=== PATIENT | female | born 1960 | race Caucasian/White ===

== ENCOUNTER → 2018-08-31 14:51 | Outpatient (CLI) | payer OTHER, SELFPAY ==
[2018-09-05 13:39] LABS: HPV Reflexed? NOT INDICATED
== END ==
PROVIDERS: Visit Provider Obstetrics & Gynecology
DX: Z12.4 Encounter for screening for malignant neoplasm of cervix (principal)
CPT/HCPCS: 88175; G0145

== ENCOUNTER → 2018-10-26 12:21 | Outpatient (CLI) | payer MEDICAID, SELFPAY ==
--- NOTE | 2018-10-26 12:24 | BI_ITS ---
MAMMOGRAPHY - BILATERAL SCREENING 3-D CHANTELL SYNTHESIS REASON FOR EXAM: Female, 58 years old. Bilateral Screening 3-D tomosynthesis PERTINENT HISTORY: History of right stereotactic biopsy in 2005.. TECHNIQUE: 2-D mammograms and 3-D Chantell synthesis of the breast (s) were performed. CAD was performed. COMPARISON: January 20, 2013, August 05, 2011 FINDINGS: The breast composition is composed of scattered fibroglandular density. There is a stereotactic biopsy clip in the upper outer quadrant of the right breast unchanged. Scattered benign calcifications are seen. No dense spiculated masses or suspicious microcalcifications are identified. No architectural distortion is identified. There is no skin thickening or retraction. There has been no significant change since the prior study. BI/SCREENING MAMM (CAD), BILAT IMPRESSION: No mammographic signs of malignancy. Routine yearly mammograms recommended. ASSESSMENT CATEGORY: BIRADS Category 2: Benign. A letter regarding these results will be sent to the patient by the facility within 30 days. FOLLOW UP RECOMMENDATION: Yearly follow up mammogram recommended. (A) Approximately 10% of breast cancers are not detected by mammography. A normal mammogram should not delay biopsy of a clinically suspicious abnormality. Electronically Signed: Jules Chester MD at 10:30 EST , Service support ,
== END ==
PROVIDERS: Family Provider Family Medicine; PCP Family Medicine; Referring Provider Obstetrics & Gynecology; Visit Provider Obstetrics & Gynecology
DX: Z12.31 Encounter for screening mammogram for malignant neoplasm of breast (principal)
CPT/HCPCS: 77063; 77067

== ENCOUNTER 2018-11-23 07:22 | Inpatient (IN) | payer MEDICAID, SELFPAY ==
[2018-11-04 14:04] VITALS: BP 106/67; PULSE 74; RESP 16; TEMP 36.4; O2SAT 100; BMI 22.9
[2018-11-04 15:05] LABS: Absolute Lymphocyte Count 1.23 X10^3/ul (0.83-4.51); Absolute Neutrophil Count 3.9 X10^3/uL (2.0-7.7); Basophil# 0.03 X10^3/uL; Basophil% 0.5 % (0-1); Eosinophil# 0.07 X10^3/uL; Eosinophils% 1.3 % (0-5); Hematocrit 40.5 % (37-47); Hemoglobin 13.5 g/dl (12.0-15.0); Lymphocyte # 1.23 X10^3/ul (4.0); Lymphocyte % 22.2 % (19-41); Mean Corp Hgb Conc 33.3 g/gl (32-36); Mean Corpuscular Hgb 29.5 pg (27.0-32.0); Mean Corpuscular Volume 88.6 fL (81-99); Mean Platelet Vol. 9.9 fl (6.2-12.0); Monocyte# 0.28 X10^3/uL; Monocyte% 5.1 % (0-10); Neutrophil # 3.91 X10^3/uL (2.7-7.7); Neutrophil % 70.7 % (47-70); Platelet Count 201 K/mm3 (150-450); RBC Distribution Width CV 13.4 % (11.6-14.6); RBC Distribution Width SD 43.8 fl (35.1-43.9); Red Blood Count 4.57 M/mm3 (4.2-5.4); White Blood Count 5.5 K/mm3 (4.4-11.0)
[2018-11-04 15:32] LABS: Anion Gap 8 (5-15); BUN 16 mg/dL (7-18); BUN/Creat Ratio 21.9 RATIO (10-20); Chloride 106 mmol/L (98-107); Creatinine, Serum 0.73 mg/dL (0.55-1.02); EST Glomerular Filtration Rate 87 mL/min (>60); Est Glom Filt Rate - Afr Amer 106 mL/min (>60); Estimated Creatinine Clearance 73.42 ml/min; Glucose 105 mg/dL (74-106); Potassium 3.7 mmol/L (3.5-5.1); Sodium Level 142 mmol/L (136-145)
[2018-11-04 15:34] LABS: POSITIVE COUNT NO; POSITIVE DIFFERENTIAL NO; POSITIVE MORPHOLOGY NO
--- NOTE | 2018-11-05 09:30 | PCM.HP.BLA ---
History and Physical DATE OF SURGERY: 11/23/2018 SCHEDULED PROCEDURE: right total hip arthroplasty HISTORY OF PRESENT ILLNESS: This is a 58-year-old female who is been having ongoing pain in her right hip for over 15 years. She states it is progressively become worse. Patient states the pain can reach as high as a 6/10 with activity. Pain is increased with going up and down stairs, sitting for extended periods of time. Patient does have start up pain. Pain has been constant, aching, stabbing, and sore. She has difficult time with activities of daily living including getting dressed. She has tripped and stumbled secondary to her hip pain. Patient states the pain does wake her at night. Patient has tried oral medications consisting of ibuprofen with minimal relief. She has tried home exercises and walking with minimal relief. She denies previous surgeries on the right hip. Patient has had a previous MRI and that of the hip in the past. This did show osteoarthritis and labral tear. X-rays of the right hip do show progressive osteoarthritis with severe joint space narrowing. Patient currently denies chest pain, shortness of breath, fevers chills, recent infections. We have obtain surgical clearance from her primary care physician Dr. Rangel. After failing conservative measures and discussing treatment options with Dr. Jose Che, the patient would like to proceed with a right total hip arthroplasty. REVIEW OF SYSTEMS: ROS: Const: Denies change in appetite, fever,or weight change. CV: Denies chest pain, heart murmur and irregular heartbeat. Resp: Denies cough, pneumonia, SOB, tuberculosis and wheezing. GI: Denies constipation, diarrhea, difficulty swallowing, heartburn, nausea, bloody stools and vomiting. : Urinary: denies incontinence. Musculo: Reports limp and weakness, but denies leg swelling and trouble walking. Skin: Denies Raynaud's, history of shingles and tattoo. Neuro: Denies ambulatory dysfunction, dizziness, numbness/tingling and tremor. Psych: Denies anxiety, insomnia and stress. Spencer/Lymph: Denies anemia, bleeding/bruising tendency and past transfusion. Reviewed, no changes. PAST MEDICAL HISTORY: Advance Care Plan: No Advance Directives Effective Date: 10/06/2018 PMH: Medical Problems: Arthritis Accidents: None Surgical Hx: Tonsillectomy - (1960) Anesthesia Complications: None Assistive Devices: Glasses Reviewed, no changes. 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 Personal Habits: Cigarette Use: Never Smoked Cigarettes.Alcohol: Denies use.Drug Use: Denies Use.Enjoy Exercising: Exercises 1-3 X/Week. Reviewed, no changes. VITALS: Ht: 64.5 Wt: 136lb Wt k.690 BMI: 23.0 BP: 108/68 Pulse: 76 Resp: 10 T: 97.2 T: 36.2C ALLERGIES: No Known Drug Allergy MEDICATIONS: No Active Medications PRE-OP EXAM: General appearance:NORMAL Other: Eyes: Conjunctivae and lids: NORMAL Pupils: ERR Ears, Nose, Mouth, and Throat: NORMAL Other: Inspection of lips, teeth and gums: NORMAL Other: Neck: Examination of neck: no masses noted. Respiratory: Assessment of respiratory effort: NORMAL Other: Auscultation of lungs: clear to auscultation no wheezes, rhonchi or rales. Cardiovascular: Auscultation of heart: regular rate and rhythm, no murmurs, gallops or rubs. Exam of carotid arteries: NORMAL Other: Gastrointestinal: Exam of abdomen: soft, nontender, nondistended bowel sounds present. PHYSICAL EXAMINATION: Patient has tenderness to palpation over the lateral aspect of the greater trochanter. Range of motion right hip: Flexion 95, internal rotation 10, external rotation 10. Pain is reproduced with flexion, external/internal rotation. Sensation intact to light touch. Neurovascularly intact. IMAGING STUDIES: X-rays were obtained and [facility] which does reveal progressive osteoarthritis of the right hip with joint space narrowing, subchondral sclerosis, and osteophyte formation consistent with severe osteoarthritis. Patient had previous x-rays in 2016. There is subchondral sclerosis with progressive formation of subchondral cyst in the femoral head and acetabulum. IMPRESSION: 1. Severe right hip osteoarthritis PLAN: Dr. Jose Che did discuss and review with the patient all treatment options including surgical versus nonsurgical options. Patient does wish to proceed with the above-stated procedure. Potential risks, benefits, and complications of the procedure were discussed in detail including but not limited to , infection, nerve and blood vessel damage, persistent pain, numbness, tingling, paresthesias, blood clot, pulmonary embolism, and requirement for possible further surgery. The patient expressed full understanding and has no further questions for the doctor. Patient does agree to proceed with the above-stated procedure and has signed the surgery consent form. This dictation was created using voice recognition software. Phonetic and/or grammatical errors may exist.. ___ I have re-examined the patient. There are no clinical changes since date of exam. ___ See progress notes for changes. ___ Dictated on admission Date: Time: Signature:
[2018-11-21 11:53] LABS: Albumin, Serum 4.4 g/dL (3.2-5.0)
--- NOTE | 2018-11-21 14:04 | CASEMGMT ---
Call placed to patient to discuss discharge needs after upcoming surgery. Patient plans to return home and has assistance at home. Outpatient physical therapy is set up at [facility] and patient plans to utilize [facility] transportation. Patient has a walker, shower seat, grab bar beside toilet. Patient reports home is handicapped accessible. Bedroom and bathroom are on the 1st level of the home. There are no steps into home, patient has a ramp. Informed patient that RN-CM will likely follow up after surgery. Noemy Arenas LPN Clinical Support
[2018-11-23] VITALS (13 sets, daily range): BP systolic 92–113; BP diastolic 52–82; PULSE 64–94; RESP 14–16; TEMP 36.3–37.1; O2SAT 95–100; BMI 22.9; BMI 22.6
[2018-11-23] MEDS: oxyCODONE HCl Cr 10 MG Tablet PO (07:57)
[2018-11-23] MEDS: Acetaminophen 500 MG Tablet 1000 MG PO ×3 (07:57→21:50)
[2018-11-23] MEDS: Celecoxib 200 MG Capsule 400 MG PO (07:57)
--- NOTE | 2018-11-23 08:10 | RAD_ITS ---
STUDY: X-RAY - RIGHT HIP REASON FOR EXAM: Female, 58 years old. Right total hip TECHNIQUE: 2 views of the hip. Intraoperative fluoroscopy images COMPARISON: None. FINDINGS: Placement of right hip arthroplasty. No evidence of acute complications. 6.3 seconds of fluoroscopy time RAD/Hip 1 view with Pelvis IMPRESSION: As above Electronically Signed: Abram Negrete DO at 12:58 EST Tel , Service support ,
[2018-11-23] MEDS: Lactated Ringers 1,000 ML 999 ML IV ×2 (08:20→10:15)
[2018-11-23] MEDS: Cefazolin 2 GM in 0.9% Normal Saline 100 ML IV (08:28)
--- NOTE | 2018-11-23 09:55 | RAD_ITS ---
STUDY: X-RAY - RIGHT HIP REASON FOR EXAM: Female, 58 years old. Postop of right hip TECHNIQUE: 2 views of the hip. COMPARISON: 05/09/2014 FINDINGS: Patient is status post right hip arthroplasty. No evidence of acute hardware failure or loosening. Expected postoperative soft tissue changes. Hardware appears intact. Left hip is grossly within normal limits. RAD/Hip Min 2 Views (Portable) IMPRESSION: As above Electronically Signed: Abram Negrete DO at 12:57 EST Tel , Service support ,
--- NOTE | 2018-11-23 09:57 | PCM.OPRPT ---
Report of Operation Date of Procedure: 11/23/18 Pre-Operative Diagnosis: Right hip primary osteoarthritis Post-Operative Diagnosis: Right hip primary osteoarthritis Surgery/Procedure Performed:: Right direct anterior total hip replacement Description of Surgical Findings:: Stable hip with equal leg lengths plasterer stucco: Savanna Jack Type of Anesthesia:: Spinal Anesthesiologist: Dario Dove Special Medications: 2 g Ancef, 1 g TXA at incision, 1 g TXA closure, 10 mg Decadron, joint cocktail (5 mg Duramorph, 30 mL of 0.5% Ropivicaine, 1000 units of epinephrine, 30 mg of Toradol) Specimen's removed: Bony cuts Estimated Blood Loss (mL): 100 Fluids Replaced: 1000 ML crystalloid Description of Procedure: Components used: 1. Accolade 2 Sandro femoral stem size 5 127? 2. Tropic trident 2 acetabular shell size 54 mm 3. Tropic X3 polyethylene E 4. Tropic Biolox delta 36mm, -5mm femoral head Brief history operative indications: 58 yo F who failed conservative measures for their hip osteoarthritis. X-rays were consistent with osteoarthritis including joint space narrowing, osteophyte formation and subchondral cysts. Total hip replacement was discussed with the patient with risks and benefits including but not limited to blood loss, DVTs, PEs, neurovascular damage, dislocation, general risks of anesthesia including loss of life. Patient demonstrated an understanding medical clearance is obtained the patient was consented for surgery. Procedure: On the date of procedure the patient's R hip was marked in the preoperative area. Patient was then taken back to the operating room where anesthesia assumed control of the C-spine and airway and administered anesthetic. Patient was transferred to the operating table and placed in the supine position. The hips were placed at the break of the bed and a sacral bump was placed. The R lower extremity was then prepped out in a sterile fashion using chlorhexidine while the surgeon scrubbed. The PA was vital in the positioning of the patient. Upon reentering the room the R lower extremity was draped in the standard orthopedic fashion and the incision was marked. A timeout was called and everyone agreed upon the side, the site, the procedure be performed, antibody given, and patient's identity. At this time incision was made through skin, subcutaneous tissue, and fat down to fascia. The fascia was then incised and the TFL was retracted laterally. A retractor was placed on the lateral border of the femoral neck. Attention was directed to the inferior portion of the approach and all crossing vessels were identified and appropriately coagulated. A retractor was then placed on the medial portion of the femoral neck. The anterior capsule was then cleared of all soft tissue and then H shaped capsulotomy was made. The retractors were then placed inside the capsule. The femoral neck was identified and a cleanup cut was made. At this time a power corkscrew was used to remove the femoral head. Attention was then turned toward the acetabulum where the soft tissues were appropriately retracted and the acetabulum was sequentially reamed to 54 mm. A 54 mm cup was then selected and impacted into place. Based on patient's bone quality a single screw with bicortical purchase was placed superiorly in the safe zone. Acetabular liner was impacted into place and locking mechanism was verified. The position of the acetabular cup was then verified under live fluoroscopy. Attention was then turned to the femur. Soft tissue releases on the medial and lateral femoral neck were appropriately done, the leg was externally rotated and lateralized. A Martinez retractor was placed medially and proximally to the greater trochanter this allowed appropriate visualization and exposure of the femoral canal. Rongeour was then used to remove excess lateral bone. A canal finder and entry broach were used to open the proximal canal. Once we verified we were down the femoral canal we subsequently broached up to a size 5 femur. The appropriate neck was placed in the previously selected head was trialed with a -5 mm neck. Traction was pulled and the hip was reduced with internal rotation. Once it was appropriately reduced and stability was checked. There was minimal shuck, equal leg lengths and appropriate stability with hyperextension and external rotation as well as with 90? flexion and internal rotation. Fluoroscopy was then also used to verify the position of the components and leg lengths using the contralateral side for comparison. The trial components were then dislocated the proximal femur was again exposed and the components were removed from the wound. The final components were verified and opened. The wound was copiously irrigated out with normal saline. The acetabulum was checked for any residual debris. The final components were placed and impacted. Traction and internal rotation were again used to reduce the hip. After adequate reduction the hip remained stable with appropriate leg lengths. The final components were once again checked with live fluoroscopy and were found to be satisfactory. The wound was then copiously irrigated with normal saline once more, and hemostasis was obtained. Closure was then done using #1 Vicryl runner to close the fascia. A 2-0 vicryl interuppted sutures were used to close the subcutaneous skin. A 3-0 Monocryl and Steri-Strips were used for final skin closure. A Silverlon dressing was placed. Patient was awakened by anesthesia and transferred to the rangie. Patient was then transferred to the PACU for recovery. Postoperative plan: Patient will get 24 hours postop antibiotics. Patient will get in-house physical therapy and will be weight-bear as tolerated. Patient will follow up in office in 2 weeks for a wound check and x-rays. Grafts/Implants Used: Tropic Accolade 2, Trident 2 - Complications None - Admit VTE Documentation VTE Present on Admission: No VTE Mechan Device Prophylaxis: SCD's, Thigh High PRIMITIVO Hose VTE Pharm Prophylaxis ordered?: Yes
--- NOTE | 2018-11-23 10:00 | OP.PCM_ITS ---
Report of Operation Date of Procedure: 11/23/18 Pre-Operative Diagnosis: Right hip primary osteoarthritis Post-Operative Diagnosis: Right hip primary osteoarthritis Surgery/Procedure Performed:: Right direct anterior total hip replacement Description of Surgical Findings:: Stable hip with equal leg lengths launch check out: Savanna Jack Type of Anesthesia:: Spinal Anesthesiologist: Dario Dove Special Medications: 2 g Ancef, 1 g TXA at incision, 1 g TXA closure, 10 mg Decadron, joint cocktail (5 mg Duramorph, 30 mL of 0.5% Ropivicaine, 1000 units of epinephrine, 30 mg of Toradol) Specimen's removed: Bony cuts Estimated Blood Loss (mL): 100 Fluids Replaced: 1000 ML crystalloid Description of Procedure: Components used: 1. Accolade 2 Sandro femoral stem size 5 127? 2. [place] trident 2 acetabular shell size 54 mm 3. [place] X3 polyethylene E 4. [place] Biolox delta 36mm, -5mm femoral head Brief history operative indications: 58 yo F who failed conservative measures for their hip osteoarthritis. X-rays were consistent with osteoarthritis including joint space narrowing, osteophyte formation and subchondral cysts. Total hip replacement was discussed with the patient with risks and benefits including but not limited to blood loss, DVTs, PEs, neurovascular damage, dislocation, general risks of anesthesia including loss of life. Patient demonstrated an understanding medical clearance is obtained the patient was consented for surgery. Procedure: On the date of procedure the patient's R hip was marked in the preoperative area. Patient was then taken back to the operating room where anesthesia assumed control of the C-spine and airway and administered anesthetic. Patient was transferred to the operating table and placed in the supine position. The hips were placed at the break of the bed and a sacral bump was placed. The R lower extremity was then prepped out in a sterile fashion using chlorhexidine while the surgeon scrubbed. The PA was vital in the positioning of the patient. Upon reentering the room the R lower extremity was draped in the standard orthopedic fashion and the incision was marked. A timeout was called and everyone agreed upon the side, the site, the procedure be performed, antibody given, and patient's identity. At this time incision was made through skin, subcutaneous tissue, and fat down to fascia. The fascia was then incised and the TFL was retracted laterally. A retractor was placed on the lateral border of the femoral neck. Attention was directed to the inferior portion of the approach and all crossing vessels were identified and appropriately coagulated. A retractor was then placed on the medial portion of the femoral neck. The anterior capsule was then cleared of all soft tissue and then H shaped capsulotomy was made. The retractors were then placed inside the capsule. The femoral neck was identified and a cleanup cut was made. At this time a power corkscrew was used to remove the femoral head. Attention was then turned toward the acetabulum where the soft tissues were appropriately retracted and the acetabulum was sequentially reamed to 54 mm. A 54 mm cup was then selected and impacted into place. Based on patient's bone quality a single screw with bicortical purchase was placed superiorly in the safe zone. Acetabular liner was impacted into place and locking mechanism was verified. The position of the acetabular cup was then verified under live fluoroscopy. Attention was then turned to the femur. Soft tissue releases on the medial and lateral femoral neck were appropriately done, the leg was externally rotated and lateralized. A Martinez retractor was placed medially and proximally to the greater trochanter this allowed appropriate visualization and exposure of the femoral canal. Rongeour was then used to remove excess lateral bone. A canal finder and entry broach were used to open the proximal canal. Once we verified we were down the femoral canal we subsequently broached up to a size 5 femur. The appropriate neck was placed in the previously selected head was trialed with a -5 mm neck. Traction was pulled and the hip was reduced with internal rotation. Once it was appropriately reduced and stability was checked. There was minimal shuck, equal leg lengths and appropriate stability with hyperextension and external rotation as well as with 90? flexion and internal rotation. Fluoroscopy was then also used to verify the position of the components and leg lengths using the contralateral side for comparison. The trial components were then dislocated the proximal femur was again exposed and the components were removed from the wound. The final components were verified and opened. The wound was copiously irrigated out with normal saline. The acetabulum was checked for any residual debris. The final components were placed and impacted. Traction and internal rotation were again used to reduce the hip. After adequate reduction the hip remained stable with appropriate leg lengths. The final components were once again checked with live fluoroscopy and were found to be satisfactory. The wound was then copiously irrigated with normal saline once more, and hemostasis was obtained. Closure was then done using #1 Vicryl runner to close the fascia. A 2-0 vicryl interuppted sutures were used to close the subcutaneous skin. A 3-0 Monocryl and Steri-Strips were used for final skin closure. A Silverlon dressing was placed. Patient was awakened by anesthesia and transferred to the rpaxinos. Patient was then transferred to the PACU for recovery. Postoperative plan: Patient will get 24 hours postop antibiotics. Patient will get in-house physical therapy and will be weight-bear as tolerated. Patient will follow up in office in 2 weeks for a wound check and x-rays. Grafts/Implants Used: [place] Accolade 2, Trident 2 - Complications None - Admit VTE Documentation VTE Present on Admission: No VTE Mechan Device Prophylaxis: SCD's, Thigh High PRIMITIVO Hose VTE Pharm Prophylaxis ordered?: Yes
[2018-11-23] MEDS: Scopolamine 1mg/72hr Patch 1 PATCH TD (10:40)
[2018-11-23] MEDS: Lactated Ringers 1,000 ML 125 ML IV (11:48)
[2018-11-23] MEDS: Famotidine 20 MG Tablet PO (12:43)
[2018-11-23] MEDS: Aspirin 81 MG TAB.CHEW PO (16:27)
[2018-11-23] MEDS: Cefazolin 1 GM/50 ML BAG IV (16:27)
[2018-11-23] MEDS: Senna/Docusate Sodium 1 Tablet 2 TABLET PO (21:50)
[2018-11-24] MEDS: Cefazolin 1 GM/50 ML BAG IV (00:13)
[2018-11-24] MEDS: 0.9% NaCl Peripheral Flush Adult/Peds IV (00:13)
[2018-11-24 02:41] VITALS: BP 100/56; PULSE 64; RESP 16; TEMP 36.8; O2SAT 97
[2018-11-24] MEDS: Acetaminophen 500 MG Tablet 1000 MG PO ×2 (05:32→14:39)
[2018-11-24 05:59] LABS: Hematocrit 36.5 % (37-47); Hemoglobin 12.1 g/dl (12.0-15.0); Mean Corp Hgb Conc 33.2 g/gl (32-36); Mean Corpuscular Hgb 30.2 pg (27.0-32.0); Mean Platelet Vol. 10.2 fl (6.2-12.0); Platelet Count 168 K/mm3 (150-450); RBC Distribution Width CV 13.8 % (11.6-14.6); RBC Distribution Width SD 45.6 fl (35.1-43.9); Red Blood Count 4.01 M/mm3 (4.2-5.4); White Blood Count 7.3 K/mm3 (4.4-11.0)
[2018-11-24 06:07] LABS: Scan Indicated on CBC? Y/N NO
[2018-11-24 06:20] LABS: Anion Gap 8 (5-15); BUN 12 mg/dL (7-18); BUN/Creat Ratio 17.1 RATIO (10-20); Calcium,Total 8.4 mg/dL (8.5-10.1); Chloride 100 mmol/L (98-107); EST Glomerular Filtration Rate 91 mL/min (>60); Est Glom Filt Rate - Afr Amer 111 mL/min (>60); Estimated Creatinine Clearance 79.79 ml/min; Glucose 67 mg/dL (74-106); Potassium 3.6 mmol/L (3.5-5.1); Sodium Level 136 mmol/L (136-145)
[2018-11-24] MEDS: Aspirin 81 MG TAB.CHEW PO (08:03)
[2018-11-24] MEDS: Senna/Docusate Sodium 1 Tablet 2 TABLET PO (08:05)
[2018-11-24] MEDS: Meloxicam 7.5 MG Tablet PO (08:05)
[2018-11-24] MEDS: Famotidine 20 MG Tablet PO (08:05)
[2018-11-24] MEDS: oxyCODONE 5 MG Tablet PO ×2 (08:09→14:39)
[2018-11-24 08:41] VITALS: BP 97/46; PULSE 90; RESP 16; TEMP 36.8; O2SAT 97
--- NOTE | 2018-11-24 09:01 | PN.ORTHO_ITS ---
Subjective: The patient was sitting in bedside chair upon examination. Patient denies any chest pain, shortness of breath, dizziness, lightheadedness, nausea or vomiting, or calf pain. Pain is controlled on medications. No adverse overnight events. Overall patient is doing very well. She did very well in physical therapy and the pain has been controlled. Patient does wish to go home today. Patient has outpatient physical therapy scheduled. Objective: Vital signs stable and afebrile. Patient is able to plantarflex and dorsiflex actively. Sensation is intact to light touch to saphenous, sural, superficial and deep peroneal, and tibial distribution. Dressing is clean dry and intact. Negative Homans bilaterally, negative signs and symptoms of DVT. - Physical Exam General: Alert, Oriented x3, Cooperative, No apparent distress Vital Signs Temp Pulse Resp BP Pulse Ox 98.2 F 90 16 97/46 L 97 11/24/18 08:41 11/24/18 08:41 11/24/18 08:41 11/24/18 08:41 11/24/18 08:41 Oxygen Delivery Method Room Air Weight: 61.698 kg Body Mass Index (BMI) 22.6 Intake and Output for Last 24 Hours 11/22/18 11/23/18 11/24/18 23:59 23:59 23:59 Intake Total 1999 2562 / 2562 Output Total 1974 Balance 1999 587 / 587 Laboratory Tests Past 24 Hrs 11/24/18 11/24/18 05:15 05:15 WBC 7.3 RBC 4.01 L Hgb 12.1 Hct 36.5 L MCV 91.0 MCH 30.2 MCHC 33.2 RDW 13.8 RDW Differential 45.6 H Plt Count 168 MPV 10.2 Sodium 136 Potassium 3.6 Chloride 100 Carbon Dioxide 28.0 Anion Gap 8 BUN 12 Creatinine 0.70 Estim Creat Clear Calc 79.79 Est GFR (MDRD) Af Amer 111 Est GFR (MDRD) Non-Af 91 BUN/Creatinine Ratio 17.1 Glucose 67 L Calcium 8.4 L Medical Necessity - Tobacco Use Smoking Status: Never smoker Assessment/Plan 1. S/P right direct anterior total hip arthroplasty POD #1 2. Continue Pain Medications: Tylenol and OxyIR 3. DVT Prophylaxis: Aspirin 81 mg twice daily with food for 4 weeks postoperatively 4. PT/OT: Weightbearing as tolerated 5. H & H: 12.1/36.5, asymptomatic 6. Encouraged Incentive Spirometry 7. Disposition: Orthopedically stable, plan will be for discharge home today. Patient has outpatient physical therapy scheduled. Prescriptions will be E scribed to [facility]. Patient will follow-up per postop instructions.
--- NOTE | 2018-11-24 09:06 | PCM.DC.THR ---
Discharge Diet: No Restrictions Discharge Activity: May Not Drive - while taking narcotic pain medications. May shower in (days): 1 - Turned dressing away from water Ice area for (Minutes): 20 - Every 1-2 hours while awake Weight Bearing Status: Weight bearing as tolerated Elevate: Operative Extremity Additional Activity Instructions:: Wear elastic stockings for 2 weeks. DO NOT use alcohol with narcotic pain medication. DO NOT make important decisions while taking narcotic medication. If you have problems with taking your medication (rash, itching, nausea, etc.) call the office at once. Call your doctor if your incision/area has: Increased Pain/ Swelling, Increased Redness, Foul Smelling Discharge Call your doctor if you observe: Fever of 101 or Higher Remove Dressing in (days):: 4 - Okay to remove dressing on November 28, 2018 Additional Instructions: Follow [facility] postop instructions No herbals, supplements, fish oils 2 weeks postoperatively Allergies/Adverse Reactions: Allergies No Known Allergies Allergy (Verified 11/04/18 14:03) Medications to take at Discharge Acetaminophen [Tylenol] 1,000 mg PO Q8 #90 tablet 11/24/18 Aspirin [Aspirin, Baby] 81 mg PO BIDCM #60 tab.chew 11/24/18 Famotidine [Pepcid] 20 mg PO DAILY #30 tablet 11/24/18 Meloxicam [Mobic] 7.5 mg PO BID #60 tablet 11/24/18 Oxycodone [Oxyir] 5 - 10 mg PO Q4H PRN PRN 5 Days #60 tablet 11/24/18 The following prescriptions were given: Oxycodone [Oxyir] 5 - 10 mg PO Q4H PRN PRN 5 Days #60 tablet PRN Reason: Pain Acetaminophen [Tylenol] 1,000 mg PO Q8 #90 tablet Famotidine [Pepcid] 20 mg PO DAILY #30 tablet Aspirin [Aspirin, Baby] 81 mg PO BIDCM #60 tab.chew Meloxicam [Mobic] 7.5 mg PO BID #60 tablet Primary Care Physician: Giles Rangel DO [Primary Care Provider] - Test Results: Test results from this visit will be discussed in further detail at your follow-up appointment, if applicable. Please Follow Up With: [facility] When: 11/28/18 Please Follow Up With: Chico Holland PA-C When: 12/07/18 @ 10:00 am
--- NOTE | 2018-11-24 10:58 | CASEMGMT ---
RN CM Note: Intro role of CM to patient in room. DC planned for today. Pt states she has transportation set up with hospital van for outpt therapy, has equipment at home. No needs identified at this time. Zeinab PARDON RN ACM
[2018-11-24 14:30] VITALS: BP 111/53; PULSE 72; RESP 16; TEMP 37; O2SAT 9
--- OUTSIDE RECORDS SUMMARY | 2019-01-25 01:57 | XMS RPT_ITS ---
:1960 Author Organization OHIP Care Team Providers Name Role Phone Roseann Ricketts Attending Unavailable Roseann Ricketts Referring Unavailable Giles Rangel Primary Care Unavailable Jose Che Admitting Unavailable Jose Che Attending Unavailable Jose Che Referring Unavailable Juan CarlosGiles izaguirre Primary Care Unavailable Roseann Ricketts Attending Unavailable PROBLEMS PROBLEMS DATE TYPE CONDITION / CODE ATTENDING STATUS SOURCE 11/24/2018 Unknown Z96.641 - Jose Che Active [facility] right [facility] joint / Repository Z96.641(ICD-10) 09/02/2018 Unknown Z12.4 - Encounter Roseann Ricketts Active [place] for screening for [facility] malignant [facility] neoplasm of Repository cervix / Z12.4(ICD-10) PROCEDURES PROCEDURES No Procedure Records FoundRESULTS RESULTS DISCHARGE INSTRUCTION Observed: 11/24/2018 Status: F Source: [place] 9:08 AM [facility] REPOSITORY [facility] Medical Records Department [address] [address] Instructions for Home/Discharge Instructions 11/24/18905 MR#: [id number] Acct: [id number] Name: OMAIRA MCFARLANE Rep #: [id number] : 1960 58 From: Chico Holland PA-C PCP: Giles Rangel DO Status: ADM IN Discharge Diet: No Restrictions Discharge Activity: May Not Drive - while taking narcotic pain medications. May shower in (days): 1 - Turned dressing away from water Ice area for (Minutes): 20 - Every 1-2 hours while awake Weight Bearing Status: Weight bearing as tolerated Elevate: Operative Extremity Additional Activity Instructions:: Wear elastic stockings for 2 weeks. DO NOT use alcohol with narcotic pain medication. DO NOT make important decisions while taking narcotic medication. If you have problems with taking your medication (rash, itching, nausea, etc.) call the office at once. Call your doctor if your incision/area has: Increased Pain/ Swelling, Increased Redness, Foul Smelling Discharge Call your doctor if you observe: Fever of 101 or Higher Remove Dressing in (days):: 4 - Okay to remove dressing on November 28, 2018 Additional Instructions: Follow [facility] postop instructions No herbals, supplements, fish oils 2 weeks postoperatively Allergies/Adverse Reactions: Allergies No Known Allergies Allergy (Verified 11/04/18 14:03) Medications to take at Discharge Acetaminophen [Tylenol] 1,000 mg PO Q8 #90 tablet 11/24/18 Aspirin [Aspirin, Baby] 81 mg PO BIDCM #60 tab.chew 11/24/18 Famotidine [Pepcid] 20 mg PO DAILY #30 tablet 11/24/18 Meloxicam [Mobic] 7.5 mg PO BID #60 tablet 11/24/18 Oxycodone [Oxyir] 5 - 10 mg PO Q4H PRN PRN 5 Days #60 tablet 11/24/18 The following prescriptions were given: Oxycodone [Oxyir] 5 - 10 mg PO Q4H PRN PRN 5 Days #60 tablet PRN Reason: Pain Acetaminophen [Tylenol] 1,000 mg PO Q8 #90 tablet Famotidine [Pepcid] 20 mg PO DAILY #30 tablet Aspirin [Aspirin, Baby] 81 mg PO BIDCM #60 tab.chew Meloxicam [Mobic] 7.5 mg PO BID #60 tablet Primary Care Physician: Giles Rangel DO [Primary Care Provider] - Test Results: Test results from this visit will be discussed in further detail at your follow-up appointment, if applicable. Please Follow Up With: [facility] When: 11/28/18 Please Follow Up With: Chico Holland PA-C When: 12/07/18 @ 10:00 am 11/24/18 0908 <Electronically signed by Chico Holland PA-C> Date Chico Holland PA-C CC: Giles Rangel DO Signed CBC-COMPLETE BLOOD CNT Collected: 11/24/2018 Status: F Source: [place] NO DIFF 5:15 AM [facility] REPOSITORY TYPE CODE TESTS RESULT OUT OF RANGE REFERENCE UNITS LAB L100.1000 4.4-11.0 K/mm3 Normal WBC 7.3 LAB L100.1200 4.2-5.4 M/mm3 Low RBC 4.01 LAB L100.1300 12.0-15.0 g/dl Normal HGB 12.1 LAB L100.1400 37-47 % Low HCT 36.5 LAB L100.1500 81-99 fL Normal MCV 91.0 LAB L100.1600 27.0-32.0 pg Normal MCH 30.2 LAB L100.1700 32-36 g/gl Normal MCHC 33.2 LAB L100.1810 11.6-14.6 % Normal RDW CV 13.8 LAB L100.1820 35.1-43.9 fl High RDW SD 45.6 LAB L100.1900 150-450 K/mm3 Normal PLT 168 LAB L100.2000 6.2-12.0 fl Normal MPV 10.2 Performed By: #### L100.0500 #### [facility] [address] [place], [address] BASIC METABOLIC Collected: 11/24/2018 Status: F Source: [place] PROFILE (BMP) 5:15 AM [facility] REPOSITORY TYPE CODE TESTS RESULT OUT OF RANGE REFERENCE UNITS LAB L501.0100 74-106 mg/dL Low GLU 67 Result Comment: Please note revised GLUCOSE reference range effective 2017. LAB L501.1000 7-18 mg/dL Normal BUN 12 LAB L501.1100 0.55-1.02 mg/dL Normal CREAT,SERUM 0.70 Result Comment: The validity of the calculated GFR AND GFRAA in patients over 70 years has not been determined. Clinical correlation is essential. LAB L501.1110 >60 mL/min Normal EST GFR 91 Result Comment: Non- GFR Calc LAB L501.1115 >60 mL/min Normal EST GFR - AA 111 Result Comment: GFR Calc LAB L501.1255 ml/min Normal Estimated CRCL 79.79 LAB L501.1300 10-20 RATIO Normal BUN/CRE 17.1 LAB L501.2200 8.5-10 mg/dL Low .1 CA 8.4 LAB L501.5300 136-14 mmol/L Normal 5 NA 136 LAB L501.5600 3.5-5. mmol/L Normal 1 K 3.6 LAB L501.5900 98-107 mmol/L Normal CL 100 LAB L501.6100 21.0-3 mmol/L Normal 2.0 CO2 28.0 LAB L501.6200 5-15 Normal GAP 8 Performed By: #### L500.2500 #### [facility] [address] [facility] [place], [address] OPERATIVE REPORT Observed: 11/23/2018 Status: F Source: [place] 10:00 AM [facility] REPOSITORY [facility] Medical Records Department [address] [place] [address] Operative Report 11/23/18 0957 MR#: [id number] Acct: [id number] Name: OMAIRA MCFARLANE Rep #: [id number] : 1960 58 From: Jose Che MD PCP: Giles Rangel DO Status: ADM IN Y [place] [facility] [place] of Operation Date of Procedure: 11/23/18 Pre-Operative Diagnosis: Right hip primary osteoarthritis Post-Operative Diagnosis: Right hip primary osteoarthritis Surgery/Procedure Performed:: Right direct anterior total hip replacement Description of Surgical Findings:: Stable hip with equal leg lengths it applications manager: Guero,Savanna A Type of Anesthesia:: Spinal Anesthesiologist: Dario Dove Special Medications: 2 g Ancef, 1 g TXA at incision, 1 g TXA closure, 10 mg Decadron, joint cocktail (5 mg Duramorph, 30 mL of 0.5% Ropivicaine, 1000 units of epinephrine, 30 mg of Toradol) Specimen's removed: Bony cuts Estimated Blood Loss (mL): 100 Fluids Replaced: 1000 ML crystalloid Description of Procedure: Components used: 1. Accolade 2 Sandro femoral stem size 5 127 2. Sandro trident 2 acetabular shell size 54 mm 3. Sandro X3 polyethylene E 4. [place] Biolox delta 36mm, -5mm femoral head Brief history operative indications: 58 yo F who failed conservative measures for their hip osteoarthritis. X-rays were consistent with osteoarthritis including joint space narrowing, osteophyte formation and subchondral cysts. Total hip replacement was discussed with the patient with risks and benefits including but not limited to blood loss, DVTs, PEs, neurovascular damage, dislocation, general risks of anesthesia including loss of life. Patient demonstrated an understanding medical clearance is obtained the patient was consented for surgery. Procedure: On the date of procedure the patient's R hip was marked in the preoperative area. Patient was then taken back to the operating room where anesthesia assumed control of the C-spine and airway and administered anesthetic. Patient was transferred to the operating table and placed in the supine position. The hips were placed at the break of the bed and a sacral bump was placed. The R lower extremity was then prepped out in a sterile fashion using chlorhexidine while the surgeon scrubbed. The PA was vital in the positioning of the patient. Upon reentering the room the R lower extremity was draped in the standard orthopedic fashion and the incision was marked. A timeout was called and everyone agreed upon the side, the site, the procedure be performed, antibody given, and patient's identity. At this time incision was made through skin, subcutaneous tissue, and fat down to fascia. The fascia was then incised and the TFL was retracted laterally. A retractor was placed on the lateral border of the femoral neck. Attention was directed to the inferior portion of the approach and all crossing vessels were identified and appropriately coagulated. A retractor was then placed on the medial portion of the femoral neck. The anterior capsule was then cleared of all soft tissue and then H shaped capsulotomy was made. The retractors were then placed inside the capsule. The femoral neck was identified and a cleanup cut was made. At this time a power corkscrew was used to remove the femoral head. Attention was then turned toward the acetabulum where the soft tissues were appropriately retracted and the acetabulum was sequentially reamed to 54 mm. A 54 mm cup was then selected and impacted into place. Based on patient's bone quality a single screw with bicortical purchase was placed superiorly in the safe zone. Acetabular liner was impacted into place and locking mechanism was verified. The position of the acetabular cup was then verified under live fluoroscopy. Attention was then turned to the femur. Soft tissue releases on the medial and lateral femoral neck were appropriately done, the leg was externally rotated and lateralized. A Martinez retractor was placed medially and proximally to the greater trochanter this allowed appropriate visualization and exposure of the femoral canal. Rongeour was then used to remove excess lateral bone. A canal finder and entry broach were used to open the proximal canal. Once we verified we were down the femoral canal we subsequently broached up to a size 5 femur. The appropriate neck was placed in the previously selected head was trialed with a -5 mm neck. Traction was pulled and the hip was reduced with internal rotation. Once it was appropriately reduced and stability was checked. There was minimal shuck, equal leg lengths and appropriate stability with hyperextension and external rotation as well as with 90 flexion and internal rotation. Fluoroscopy was then also used to verify the position of the components and leg lengths using the contralateral side for comparison. The trial components were then dislocated the proximal femur was again exposed and the components were removed from the wound. The final components were verified and opened. The wound was copiously irrigated out with normal saline. The acetabulum was checked for any residual debris. The final components were placed and impacted. Traction and internal rotation were again used to reduce the hip. After adequate reduction the hip remained stable with appropriate leg lengths. The final components were once again checked with live fluoroscopy and were found to be satisfactory. The wound was then copiously irrigated with normal saline once more, and hemostasis was obtained. Closure was then done using #1 Vicryl runner to close the fascia. A 2-0 vicryl interuppted sutures were used to close the subcutaneous skin. A 3-0 Monocryl and Steri-Strips were used for final skin closure. A Silverlon dressing was placed. Patient was awakened by anesthesia and transferred to the rodessa. Patient was then transferred to the PACU for recovery. Postoperative plan: Patient will get 24 hours postop antibiotics. Patient will get in-house physical therapy and will be weight-bear as tolerated. Patient will follow up in office in 2 weeks for a wound check and x-rays. Grafts/Implants Used: Sandro Accolade 2, Trident 2 - Complications None - Admit VTE Documentation VTE Present on Admission: No VTE Mechan Device Prophylaxis: SCD's, Thigh High PRIMITIVO Hose VTE Pharm Prophylaxis ordered?: Yes 11/23/18 1000 <Electronically signed by Jose Che MD> Date Jose Che MD CC: Giles Rangel DO; Jose Che MD Signed HIP MIN 2 VIEWS Observed: 11/23/2018 Status: F Source: [place] (PORTABLE) 9:57 AM [facility] REPOSITORY [facility] Imaging Services [address] [place] [address] Hip Min 2 Views (Portable) MR#: [id number] Acct: [id number] Name: OMAIRA MCFARLANE Rep #: [id number] : 1960 F 58 From: Abram Negrete DO PCP: Giles Rangel DO Status: ADM IN Study: Hip Min 2 Views (Portable) Date of Exam: 11/23/18 Exam# [id number] Ordering Dr: Jose Che MD STUDY: X-RAY - RIGHT HIP REASON FOR EXAM: Female, 58 years old. Postop of right hip TECHNIQUE: 2 views of the hip. COMPARISON: 05/09/2014 FINDINGS: Patient is status post right hip arthroplasty. No evidence of acute hardware failure or loosening. Expected postoperative soft tissue changes. Hardware appears intact. Left hip is grossly within normal limits. RAD/Hip Min 2 Views (Portable) IMPRESSION: As above Electronically Signed: Abram Negrete DO at 12:57 EST Tel , Service support , CC: Giles Rangel DO; Jose Che MD Psychotherapist: Signed HIP 1 VIEW WITH Observed: 11/22/2018 Status: F Source: [place] PELVIS 11:28 PM [facility] REPOSITORY [facility] Imaging Services [address] [place] [address] Hip 1 view with Pelvis MR#: [id number] Acct: [id number] Name: OMAIRA MCFARLANE Rep #: [id number] : 1960 F 58 From: Abram Negrete DO PCP: Giles Rangel DO Status: ADM IN Study: Hip 1 view with Pelvis Date of Exam: 11/23/18 Exam# [id number] Ordering Dr: Jose Che MD STUDY: X-RAY - RIGHT HIP REASON FOR EXAM: Female, 58 years old. Right total hip TECHNIQUE: 2 views of the hip. Intraoperative fluoroscopy images COMPARISON: None. FINDINGS: Placement of right hip arthroplasty. No evidence of acute complications. 6.3 seconds of fluoroscopy time RAD/Hip 1 view with Pelvis IMPRESSION: As above Electronically Signed: Abram Negrete DO at 12:58 EST Tel , Service support , CC: Giles Che MD Psychotherapist: Signed ALBUMIN, SERUM Collected: 11/21/2018 Status: F Source: [place] 10:47 AM [facility] REPOSITORY TYPE CODE TESTS RESULT OUT OF RANGE REFERENCE UNITS LAB L501.1800 3.2-5.0 g/dL Normal ALB 4.4 Performed By: #### L501.1800 #### [facility] [address] [place], [address] HISTORY AND PHYSICAL Observed: 11/05/2018 Status: F Source: [place] EXAM 9:31 AM [facility] REPOSITORY [facility] Medical Records Department [address] [place] [address] History and Physical 11/05/18 0930 MR#: [id number] Acct: [id number] Name: OMAIRA MCFARLANE Rep #: [id number] : 1960 58 From: Chico Holland PA-C PCP: Giles Rangel DO Status: PRE IN Y Location: [facility] History and Physical DATE OF SURGERY: 11/23/2018 SCHEDULED PROCEDURE: right total hip arthroplasty HISTORY OF PRESENT ILLNESS: This is a 58-year-old female who is been having ongoing pain in her right hip for over 15 years. She states it is progressively become worse. Patient states the pain can reach as high as a 6/10 with activity. Pain is increased with going up and down stairs, sitting for extended periods of time. Patient does have start up pain. Pain has been constant, aching, stabbing, and sore. She has difficult time with activities of daily living including getting dressed. She has tripped and stumbled secondary to her hip pain. Patient states the pain does wake her at night. Patient has tried oral medications consisting of ibuprofen with minimal relief. She has tried home exercises and walking with minimal relief. She denies previous surgeries on the right hip. Patient has had a previous MRI and that of the hip in the past. This did show osteoarthritis and labral tear. X-rays of the right hip do show progressive osteoarthritis with severe joint space narrowing. Patient currently denies chest pain, shortness of breath, fevers chills, recent infections. We have obtain surgical clearance from her primary care physician Dr. Rangel. After failing conservative measures and discussing treatment options with Dr. Jose Che, the patient would like to proceed with a right total hip arthroplasty. REVIEW OF SYSTEMS: ROS: Const: Denies change in appetite, fever,or weight change. CV: Denies chest pain, heart murmur and irregular heartbeat. Resp: Denies cough, pneumonia, SOB, tuberculosis and wheezing. GI: Denies constipation, diarrhea, difficulty swallowing, heartburn, nausea, bloody stools and vomiting. : Urinary: denies incontinence. Musculo: Reports limp and weakness, but denies leg swelling and trouble walking. Skin: Denies Raynaud's, history of shingles and tattoo. Neuro: Denies ambulatory dysfunction, dizziness, numbness/tingling and tremor. Psych: Denies anxiety, insomnia and stress. Spencer/Lymph: Denies anemia, bleeding/bruising tendency and past transfusion. Reviewed, no changes. PAST MEDICAL HISTORY: Advance Care Plan: No Advance Directives Effective Date: 10/06/2018 PMH: Medical Problems: Arthritis Accidents: None Surgical Hx: Tonsillectomy - (1959) Anesthesia Complications: None Assistive Devices: Glasses Reviewed, no changes. 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 Personal Habits: Cigarette Use: Never Smoked Cigarettes.Alcohol: Denies use.Drug Use: Denies Use.Enjoy Exercising: Exercises 1-3 X/Week. Reviewed, no changes. VITALS: Ht: 64.5 Wt: 136lb Wt k.690 BMI: 23.0 BP: 108/68 Pulse: 76 Resp: 10 T: 97.2 T: 36.2C ALLERGIES: No Known Drug Allergy MEDICATIONS: No Active Medications PRE-OP EXAM: General appearance:NORMAL Other: Eyes: Conjunctivae and lids: NORMAL Pupils: ERR Ears, Nose, Mouth, and Throat: NORMAL Other: Inspection of lips, teeth and gums: NORMAL Other: Neck: Examination of neck: no masses noted. Respiratory: Assessment of respiratory effort: NORMAL Other: Auscultation of lungs: clear to auscultation no wheezes, rhonchi or rales. Cardiovascular: Auscultation of heart: regular rate and rhythm, no murmurs, gallops or rubs. Exam of carotid arteries: NORMAL Other: Gastrointestinal: Exam of abdomen: soft, nontender, nondistended bowel sounds present. PHYSICAL EXAMINATION: Patient has tenderness to palpation over the lateral aspect of the greater trochanter. Range of motion right hip: Flexion 95, internal rotation 10, external rotation 10. Pain is reproduced with flexion, external/internal rotation. Sensation intact to light touch. Neurovascularly intact. IMAGING STUDIES: X-rays were obtained and [facility] [place] which does reveal progressive osteoarthritis of the right hip with joint space narrowing, subchondral sclerosis, and osteophyte formation consistent with severe osteoarthritis. Patient had previous x-rays in 2016. There is subchondral sclerosis with progressive formation of subchondral cyst in the femoral head and acetabulum. IMPRESSION: 1. Severe right hip osteoarthritis PLAN: Dr. Jose Che did discuss and review with the patient all treatment options including surgical versus nonsurgical options. Patient does wish to proceed with the above-stated procedure. Potential risks, benefits, and complications of the procedure were discussed in detail including but not limited to , infection, nerve and blood vessel damage, persistent pain, numbness, tingling, paresthesias, blood clot, pulmonary embolism, and requirement for possible further surgery. The patient expressed full understanding and has no further questions for the doctor. Patient does agree to proceed with the above-stated procedure and has signed the surgery consent form. This dictation was created using voice recognition software. Phonetic and/or grammatical errors may exist.. ___ I have re-examined the patient. There are no clinical changes since date of exam. ___ See progress notes for changes. ___ Dictated on admission Date: Time: Signature: 11/05/18 0931 <Electronically signed by Chico Holland PA-C> Date Chico Holland PA-C Cosigner Signature: Date (if applicable) CC: Giles Rangel DO; Chico SHANNON Signed BASIC METABOLIC Collected: 11/04/2018 Status: F Source: [place] PROFILE (BMP) 2:30 PM [facility] REPOSITORY TYPE CODE TESTS RESULT OUT OF RANGE REFERENCE UNITS LAB L501.0100 74-106 mg/dL Normal GLU 105 Result Comment: Fasting Glucose result from 100 to 125 mg/dL suggests IMPAIRED HOMEOSTASIS per A.D.A. criteria. Please note revised GLUCOSE reference range effective 2017. LAB L501.1000 7-18 mg/dL Normal BUN 16 LAB L501.1100 0.55-1.02 mg/dL Normal CREAT,SERUM 0.73 Result Comment: The validity of the calculated GFR AND GFRAA in patients over 70 years has not been determined. Clinical correlation is essential. LAB L501.1110 >60 mL/min Normal EST GFR 87 Result Comment: Non- GFR Calc LAB L501.1115 >60 mL/min Normal EST GFR - AA 106 Result Comment: GFR Calc LAB L501.1255 ml/min Normal Estimated CRCL 73.42 LAB L501.1300 10-20 RATIO High BUN/CRE 21.9 LAB L501.2200 8.5-10 mg/dL Normal .1 CA 9.0 LAB L501.5300 136-14 mmol/L Normal 5 NA 142 LAB L501.5600 3.5-5. mmol/L Normal 1 K 3.7 LAB L501.5900 98-107 mmol/L Normal CL 106 LAB L501.6100 21.0-3 mmol/L Normal 2.0 CO2 28.0 LAB L501.6200 5-15 Normal GAP 8 Performed By: #### L500.2500 #### [facility] [address] [place], [address] CBC W/DIFF, AUTOMATED Collected: 11/04/2018 Status: F Source: [place] 2:30 PM [facility] REPOSITORY TYPE CODE TESTS RESULT OUT OF RANGE REFERENCE UNITS LAB L100.1000 4.4-11.0 K/mm3 Normal WBC 5.5 LAB L100.1200 4.2-5.4 M/mm3 Normal RBC 4.57 LAB L100.1300 12.0-15.0 g/dl Normal HGB 13.5 LAB L100.1400 37-47 % Normal HCT 40.5 LAB L100.1500 81-99 fL Normal MCV 88.6 LAB L100.1600 27.0-32.0 pg Normal MCH 29.5 LAB L100.1700 32-36 g/gl Normal MCHC 33.3 LAB L100.1810 11.6-14.6 % Normal RDW CV 13.4 LAB L100.1820 35.1-43.9 fl Normal RDW SD 43.8 LAB L100.1900 150-450 K/mm3 Normal PLT 201 LAB L100.2000 6.2-12.0 fl Normal MPV 9.9 LAB L100.2100 47-70 % High NEUT% 70.7 LAB L100.2200 19-41 % Normal LY% 22.2 LAB L100.2300 0-10 % Normal MONO% 5.1 LAB L100.2400 0-5 % Normal EO% 1.3 LAB L100.2500 0-1 % Normal BASO% 0.5 LAB L100.2550 0.0-0.9 % Normal IM GRAN % 0.200 Result Comment: IG% - Immature Granulocytes (promyelocytes, myelocytes and metamyelocytes) > 1% indicates that a LEFT SHIFT is Present. LAB L100.2620 2.0-7.7 X10 3/uL Normal Absolute Neut 3.9 LAB L100.2720 0.83-4.51 X10 3/ul Normal Absolute Lymph 1.23 Performed By: #### L100.0100 #### [facility] [address] [place], [place], [id number] Observed: 11/04/2018 Status: F Source: [place] MRSA/SAID SCREEN 2:30 PM [facility] REPOSITORY MRSA/SAID SCRN S. AUREUS S. aureus Negative MRSA MRSA Negative Performed By: #### M100.651 #### [facility] [address] [place], [place], [id number] SCREENING MAMM (CAD), Observed: 10/26/2018 Status: F Source: [place] BILAT 12:25 PM [facility] REPOSITORY [facility] Imaging Services [address] [place] [address] SCREENING MAMM (CAD), BILAT MR#: [id number] Acct: [id number] Name: OMAIRA MCFARLANE Rep #: [id number] : 1960 F 58 From: Jules Chester MD PCP: Giles Rangel DO Status: REG CLI Study: SCREENING MAMM (CAD), BILAT Date of Exam: 10/26/18 Exam# [id number] Ordering Dr: Roseann Ricketts MD MAMMOGRAPHY - BILATERAL SCREENING 3-D OMAR SYNTHESIS REASON FOR EXAM: Female, 58 years old. Bilateral Screening 3-D tomosynthesis PERTINENT HISTORY: History of right stereotactic biopsy in 2005.. TECHNIQUE: 2-D mammograms and 3-D Omar synthesis of the breast (s) were performed. CAD was performed. COMPARISON: January 20, 2013, August 05, 2011 FINDINGS: The breast composition is composed of scattered fibroglandular density. There is a stereotactic biopsy clip in the upper outer quadrant of the right breast unchanged. Scattered benign calcifications are seen. No dense spiculated masses or suspicious microcalcifications are identified. No architectural distortion is identified. There is no skin thickening or retraction. There has been no significant change since the prior study. BI/SCREENING MAMM (CAD), BILAT IMPRESSION: No mammographic signs of malignancy. Routine yearly mammograms recommended. ASSESSMENT CATEGORY: BIRADS Category 2: Benign. A letter regarding these results will be sent to the patient by the facility within 30 days. FOLLOW UP RECOMMENDATION: Yearly follow up mammogram recommended. (A) Approximately 10% of breast cancers are not detected by mammography. A normal mammogram should not delay biopsy of a clinically suspicious abnormality. Electronically Signed: Jules Chester MD at 10:30 EST , Service support , CC: Roseann Ricketts MD; Giles Rangel DO Psychotherapist: Signed PAP I-G W/RFX HRHPV Collected: 08/31/2018 Status: F Source: [facility] 10:45 AM [facility] REPOSITORY Order Comment: CYTOLOGY INFORMATION: - CLINICAL INFORMATION: - DATE LMP/MENOPAUSE: MENOPAUSE - COLLECTION VIAL: Thin Prep Vial - PANEL BEATER SOURCE: CERVICAL/ENDOCERVICAL - COLLECTION TECHNIQUE: BRUSH/SPATULA Specimen Comment: [id number] Specimen Comment: Source.............Cervix;Endocervix Specimen Comment: Other..............Post Menopausal Specimen Comment: No. of containers..01 ThinPrep Vial TYPE CODE TESTS RESULT OUT OF RANGE REFERENCE UNITS LAB L7400.0800 . Normal DIAGN Comment Result Comment: NEGATIVE FOR INTRAEPITHELIAL LESION AND MALIGNANCY. CELLULAR CHANGES ASSOCIATED WITH ATROPHY ARE PRESENT. LAB L7400.0900 . Normal ADEQ Comment Result Comment: Satisfactory for evaluation. Endocervical component may not be distinguished in cases of atrophy. LAB L7400.1400 . Normal PERFORM Comment Result Comment: Jeni Yuen, Biology Faculty Member (ASCP) LAB L7400.2575 . Normal TEST METHOD Comment Result Comment: This liquid based ThinPrep(R) pap test was screened with the use of an image guided system. LAB L7400.2600 . Normal . COMM LAB L7400.2700 . Normal PAPSMR Comment Result Comment: The Pap smear is a screening test designed to aid in the detection of premalignant and malignant conditions of the uterine cervix. It is not a diagnostic procedure and should not be used as the sole means of detecting cervical cancer. Both false-positive and false-negative reports do occur. LAB L7400.2800 . Normal HPV RFLX Comment Result Comment: The HPV DNA reflex criteria were not met with this specimen result therefore, no HPV testing was performed. Performed at: [facility] [id number] Coal Grader: Sarah Marin MD, Phone: [phone] Performed By: #### L7400.0350 #### [facility] (refer to report for specific site) refer to report for address and phone number ALLERGIES ALLERGIES DATE TYPE / CODE NAME / CODE REACTION SEVERITY SOURCE 11/04/2018 Drug No Known Unknown [facility] Allergy/4160 Allergies/F00 [facility] [address]894(SNOMED [id number](RXNOR Repository CT) M) ENCOUNTERS ENCOUNTERS ADMIT/DISCHARGE ACCOUNT ADMITTING ENCOUNTER LOCATION SOURCE NUMBER CLASS 11/23/2018/ [id number] Y[place], Inpatient [place] 9 1 Jose Encounter [facility] ing:[id number]: Repository LU706Jto: 1 10/26/2018 [id number] Ambulatory [place] 2 [facility] ing:OPBI Repository 08/31/2018 [id number] Ambulatory [place] 9 [facility] ing:LABSPEC Repository PAYERS PAYERS ENCOUNTER GUARANTOR PAYER SUBSCRIBER SOURCE 11/23/2018 MELVINA Primary Insurance:[facility] OMAIRA Arroyo [id number] [facility] PLANPolicy MOELLERDOB: [facility] Number: [id number] [id number] Repository [address]Wpw: [phone]) Date:9500-03-46OS [phone] () [address] [place] [address]KA: 11/23/2018 Secondary NOT GIVENUNK [place] Insurance:SELF PAY [facility] Number: Effective Repository Date:2018-10-06 10/26/2018 MELVINA Primary Insurance:[facility] OMAIRA [id number] [facility] PLANPolicy MOELLERDOB: [facility] Number: [id number], [place] [id number] Repository [address]Pty: ([phone]) Date:[id number] [phone] () [address] [place] [address] 25566CX: 10/26/2018 Secondary NOT GIVENUNK [place] Insurance:SELF PAY [facility] Number: Effective Repository Date:2018-09-01 08/31/2018 MELVINA Primary M[address]VINA [id number] Insurance:AETNAPolicy MOELLERDOB: [facility] Number: [id number], [place] [id number] Repository [address]Avr: ([phone]) Date:[id number] [phone] () [id number] MARIA T WHITING [id number]: 08/31/2018 Secondary NOT GIVENUNK [place] Insurance:SELF PAY [facility] Number: Effective Repository Date:2018-08-31
== END 2018-11-24 15:00 | disposition home or self-care (01) | DRG 301 ==
LOC: ACINP 07:25 → MS3 07:26
PROVIDERS: Admitting Provider Specialist; Family Provider Family Medicine; PCP Family Medicine; Referring Provider Specialist; Visit Provider Specialist
PROC: 0SR904A Replacement of Right Hip Joint with Ceramic on Polyethylene Synthetic Substitute, Uncemented, Open Approach (ICD-10-PCS; CPT 27284; principal; 2018-11-23 08:05)
DX: M16.11 Unilateral primary osteoarthritis, right hip (principal)
CPT/HCPCS: 36415; 73501; 73502; 76000; 80048; 82040; 85025; 85027; 87081; 97110; 97162; 97165; 97530; 99251; C1776; J7120; A4216; G0463

== ENCOUNTER 2018-12-29 10:30 | Outpatient (RCR) | payer MEDICAID, SELFPAY ==
[2018-11-23 12:17] VITALS: BMI 22.6
--- NOTE | 2018-11-28 10:28 | HP.PTEVAL_ITS ---
Patient's Visit Information OMAIRA MCFARLANE is a 58 year old F referred to Physical Therapy by SHIVA Grace with a diagnosis of R OMAR. Date of Evaluation: 11/28/18 Physical Therapist: Terence Cai PT, ATC - Visit Plan Frequency: 2-3x /Week Duration: 4-6 Weeks Plan: R LE stretching and strengthening, balance and proprio, core stab ex's, nustep, and HEP - Subjective Findings: DOS: 11/23/17. Pt reports she had a chronic history of R hip pain prior to having her R OMAR. Pt reports she is feeling much better now since having her surgery. Pt reports she can stand up taller and is able to put her own socks and shoes on now. Pt had an anterior approach performed on her R hip. Pt reports the only limitation she has at this time is to not cross her legs. Pt reports no tingling or numbness in R UE with the exception of perihip region. Pt reports no sleep difficulty secondary to pain. Pt has stairs to her basement, which she has to negotiate one step at a time. Pt is not currently employed. 1/10 pain at rest , 4/10 at worst (when she is lying in bed and changes postiotions.) - Pain R hip Pain Intensity (Out of 10): 1 Pain Intensity Range: 4 - Objective Neuro: B LE sensation is WNL to light touch. B patellar tendon reflex= 2+/3. Observation: Incision is still covered at this time. No redness or obvious signs of infection at this time. ROM: B LE's are WFL at this time. MMT: R hip is 3/5 throughout while L LE is 5/5 throughout. Gait: Pt ambulates with the use of a WW. Slow cadance this date. Pt can ambulate greater than 1000' but must use WW at this time. - Goals Goal 1:: Decrease R hip pain x 50% to aid with bed transfers Goal Time Frame: 4-6 Weeks Goal 2:: Increase R hip strength x 1 grade to aid with stair negotiation Goal Time Frame: 4-6 Weeks Goal 3:: Pt will ambulate greater than 1000' with no AD to aid with community ambulation Goal Time Frame: 4-6 Weeks Goal 4:: I with HEP Goal Time Frame: 4-6 Weeks - Rehabilitation Potential Physical Therapy Diagnosis: R hip pain, weakness, and difficulty with stair negotiation secondary to R OMAR Rehabilitation Potential: Good - Anticipated Interventions Patient/Client Instruction: Educate patient on: Condition, Plan of Care For the Purpose of:: To improve self management Therapeutic Exercise to Include: Strength training, Endurance training, Balance training, Body mechanics, Flexibilty training, Gait and locomotor training, Dynamic Lumbar Stabilization For the Purpose of:: To decrease pain, To improve muscle performance and motor function, To improve gait and locomotor functions Cryotherapy (ice pack, ice massage): Yes For the Purpose of:: To decrease pain Thank you for the opportunity to evaluate your patient. For Medicare and Medicare HMO plans, please review the plan of care and approve it. It will need to be FAXED BACK to us at [phone] for Medicare purposes. For Medicare only, by signing this I certify the plan of care. Please let me know if there are questions or concerns regarding this plan of care. Physician Sign ature: Date:
--- NOTE | 2018-12-29 10:46 | HP.PTDCSUM ---
HP - PT D/C Summary It has been my pleasure to treat OMAIRA MCFARLANE under orders from SHIVA Grace, for the diagnosis of R OMAR for a total of 12 visit(s). Discharge Date: Please see the following information for a summary of their discharge status. - Subjective Subjective: No pain this date. Pt feels ready for DC - Pain R hip Pain Intensity (Out of 10): 0 - Overall Improvement % Improvement: 90 - Objective Objective/Function: R hip pain 0/10. R LE strength is 5/5 throughout. Pt is I with HEP. Pt is able to ambulate over 1000' with no AD without difficulty. Rx goals achieved - Goals Goal 1:: Decrease R hip pain x 50% to aid with bed transfers Goal Progress: Goal Met Goal 2:: Increase R hip strength x 1 grade to aid with stair negotiation Goal Progress: Goal Met Goal 3:: Pt will ambulate greater than 1000' with no AD to aid with community ambulation Goal Progress: Goal Met Goal 4:: I with HEP Goal Progress: Goal Met - Plan Plan: Discharge - D/C Information If there are questions or concerns regarding this patient's physical therapy, please feel free to call me at [phone]. Thank you for the referral of this patient. Sincerely, Terence Cai, PT, ATC
== END 2018-12-29 11:31 | disposition home or self-care (01) ==
LOC: PT 10:30
PROVIDERS: Family Provider Family Medicine; PCP Family Medicine; Referring Provider Physician Assistant Surgical; Visit Provider Physician Assistant Surgical
DX: M16.11 Unilateral primary osteoarthritis, right hip (principal)
CPT/HCPCS: 97110; 97161; 97530

== ENCOUNTER → 2019-03-01 | Outpatient (CLI) | payer MEDICAID, SELFPAY ==
[2018-11-23 12:17] VITALS: BMI 22.6
== END | disposition home or self-care (01) ==
LOC: LABSPEC 15:40
PROVIDERS: Family Provider Family Medicine; PCP Family Medicine; Referring Provider Obstetrics & Gynecology; Visit Provider Obstetrics & Gynecology
DX: R30.0 Dysuria (principal)
CPT/HCPCS: 87086; 87088; 87186

== ENCOUNTER → 2019-08-29 11:02 | Outpatient (CLI) | payer MEDICAID, SELFPAY ==
[2018-11-23 12:17] VITALS: BMI 22.6
--- NOTE | 2019-08-29 11:15 | RAD_ITS ---
STUDY: X-RAY - LEFT ANKLE REASON FOR EXAM: Female, 59 years old. Lateral bruising and swelling following a fall. TECHNIQUE: 3 view(s) of the ankle. COMPARISON: None. FINDINGS: Normal visualized distal tibia and fibula. Nondisplaced transverse fracture of the lateral malleolus. Normal tibiotalar articulation and ankle mortise. Talar neck beak. The visualized subtalar, talonavicular, calcaneocuboid and tarsal articulations are normal. Soft tissue swelling worse on the lateral aspect. RAD/Ankle min 3 Views IMPRESSION: Nondisplaced transverse fracture of the lateral malleolus with overlying soft tissue swelling. Talar neck peak. Electronically Signed: Sundeep Huffman, at 13:03 EDT , Service support ,
== END ==
PROVIDERS: Family Provider Family Medicine; PCP Family Medicine; Referring Provider Family Medicine; Visit Provider Family Medicine
DX: S82.65XA Nondisplaced fracture of lateral malleolus of left fibula, initial encounter for closed fracture (principal); W19.XXXA Unspecified fall, initial encounter
CPT/HCPCS: 73610

== ENCOUNTER → 2025-01-03 | Outpatient (CLI) | payer MEDICAID, SELFPAY ==
[2025-01-03 08:32] LABS: Absolute Neutrophil Count 2.2 X10^3/uL (2.0-7.7); Basophil# 0.04 X10^3/uL; Basophil% 0.9 % (0-1); Eosinophil# 0.16 X10^3/uL; Eosinophils% 3.6 % (0-5); Hematocrit 42.8 % (37-47); Hemoglobin 14.5 g/dL (12.0-15.0); Lymphocyte % 37.9 % (19-41); Mean Corp Hgb Conc 33.9 g/dL (32-36); Mean Corpuscular Hgb 30.5 pg (27.0-32.0); Mean Corpuscular Volume 89.9 fL (81-99); Mean Platelet Vol. 10.2 fl (6.2-12.0); Monocyte# 0.36 X10^3/uL; NRBC Flagged by Analyzer 0 % (0-5); Neutrophil # 2.22 X10^3/uL (2.7-7.7); Neutrophil % 49.4 % (47-70); Platelet Count 193 K/mm3 (150-450); RBC Distribution Width CV 13.1 % (11.6-14.6); RBC Distribution Width SD 42.8 fl (35.1-43.9); Red Blood Count 4.76 M/mm3 (4.2-5.4); White Blood Count 4.5 K/mm3 (4.4-11.0)
[2025-01-03 09:13] LABS: ALB/GLOB Ratio 2.1 RATIO (0.9-2.4); AST(SGOT) 21 U/L (<=31); Alanine Aminotransfer ALT/SGPT 18 U/L (<=34); Albumin, Serum 4.6 g/dL (3.4-4.8); Alkaline Phosphatase 64 U/L (35-104); Anion Gap 11 (5-15); BUN 11 mg/dL (4-19); BUN/Creat Ratio 13.9 RATIO (10-20); Calcium,Total 9.4 mg/dL (7.6-11.0); Carbon Dioxide 25.8 mmol/L (21.0-32.0); Chloride 106 mmol/L (98-108); Cholesterol 144 mg/dL (<=200); EST Glomerular Filtration Rate 83 (>60); Globulin 2.2 g/dL (2.2-4.2); Glucose 83 mg/dL (70-99); High Density Lipoprotein 66 mg/dL; Low Density Lipoprotein Calc. 63 mg/dL; Potassium 4.3 mmol/L (3.3-5.1); Protein, Total 6.7 g/dL (5.9-8.4); Sodium Level 143 mmol/L (133-145); Total Bilirubin 2.06 mg/dL (0.00-1.30); Triglycerides 77 mg/dL; Very Low Density Lipoprotein 15 mg/dL (5-40); cholesterol:hdl ratio screen 2.19
== END | disposition home or self-care (01) ==
LOC: LAB 08:04
PROVIDERS: PCP Family Medicine; Referring Provider Family Medicine; Visit Provider Family Medicine
DX: Z00.00 Encounter for general adult medical examination without abnormal findings (principal); R00.2 Palpitations
CPT/HCPCS: 36415; 80053; 80061; 84443; 85025

== ENCOUNTER → 2025-05-21 | Outpatient (CLI) | payer MEDICAID, SELFPAY ==
--- OUTSIDE RECORDS SUMMARY | 2025-05-21 09:04 | XMS RPT_ITS | CCD ---
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 Giles Rangel DO Primary Care Provider Dr. Giles Rangel DO Attending Provider [phone] Dr. Giles Rangel DO Referring Provider Dr. Giles Rangel DO Primary Care Provider Juan Carlos AMBRIZ, Dr. Skaggs Referring Provider [phone] Jose Mosquera Attending Provider Allergies Allergy Classification Reported Allergen(s) Allergy Type Date of Onset Reaction(s) Facility (1 source) [facility] Allergy to substance 05-21-2025 Other [facility] Medications Current Medications Medication Drug Class(es) Dates Sig (Normalized) Sig (Original) acetaminophen 500 mg oral tablet (3 sources) Start: 11-24-2018 End: 05-21-2025 take 2 tablets by mouth every eight hours as needed Acetaminophen 500 mg tablet Active 1000 mg PO EVERY 8 HOURS as needed May 21, 2025 7:55am nitrofurantoin, macrocrystals 25 mg / nitrofurantoin, monohydrate 75 mg oral capsule (1 source) Nitrofuran Antibacterial Start: 05-21-2025 take 1 capsule by mouth every twelve hours at mealtime Nitrofurantoin Monohyd/M-Cryst (Macrobid) 100 mg capsule Active 100 mg PO Q12H 10 5 0 May 21, 2025 12:00am May 25, 2025 12:00am must administer with a meal/food Completed/Discontinued Medications Medication Drug Class(es) Dates Sig (Normalized) Sig (Original) aspirin 81 mg chewable tablet (2 sources) Platelet Aggregation Inhibitor, Nonsteroidal Anti-inflammatory Drug Start: 11-24-2018 End: 05-21-2025 take 1 tablet by mouth twice daily at mealtime Aspirin 81 MG tablet,chewable Discontinued 81 mg PO TWICE DAILY WITH MEALS 60 0 November 24, 2018 1:00am May 21, 2025 7:49am famotidine 20 mg oral tablet (2 sources) Histamine-2 Receptor Antagonist Start: 11-24-2018 End: 05-21-2025 take 1 tablet by mouth once daily Famotidine 20 MG tablet Discontinued 20 mg PO DAILY 30 0 November 24, 2018 1:00am May 21, 2025 7:49am meloxicam 7.5 mg oral tablet (2 sources) Nonsteroidal Anti-inflammatory Drug Start: 11-24-2018 End: 05-21-2025 take 1 tablet by mouth twice daily Meloxicam 7.5 MG tablet Discontinued 7.5 mg PO TWICE A DAY 60 0 November 24, 2018 1:00am May 21, 2025 7:49am oxyCODONE hydrochloride 5 mg oral tablet (2 sources) Opioid Agonist Start: 11-24-2018 End: 11-29-2018 take 5-10 mg by mouth every four hours as needed for pain Oxycodone 5 MG tablet Discontinued 5 - 10 mg PO EVERY 4 HOURS NEEDED as needed for Pain 60 5 0 November 24, 2018 1:00am November 28, 2018 1:00am November 29, 2018 1:08am Presence of right artificial hip joint Results Test Name Value Interpretation Reference Range Facility Absolute neutrophil countOrd ered By: Giles Rangel on 01-03-2025 Neutrophils (Bld) [#/Vol] 2.2 10*3/uL 2.0-7.7 [facility] Anion gap in Serum or Plasma Ordered By: Giles Rangel on 01-03-2025 Anion gap [Moles/Vol] 11 mmol/L 5-15 [facility] BUN/creatinine ratioOrdered By: Giles Rangel on 01-03-2025 Urea nitrogen/Creatinine [Mass ratio] 13.9 mg/mg 10-20 [facility] Basophil percentageOrdered B y: Giles Rangel on 01-03-2025 Basophils/100 WBC (Bld) 0.9 % 0-1 [facility] Bilirubin, totalOrdered By: Giles Rangel on 01-03-2025 Bilirubin [Mass/Vol] 2.06 mg/dL High 0.00-1.[address] [facility] CBC W/Diff, Automatedon 03-0 -2024 Absolute Lymph 1.70 X10 3/uL Normal 0.83-4.51 [facility] Comment on above: Performed By: #### L 500.4100, L100.0100, L501.9520, L500.4050 #### [facility] [address] [place], [address] Absolute Neut 2.2 X10 3/uL Normal 2.0-7.7 [facility] Comment on above: Performed By: #### L 500.4100, L100.0100, L501.9520, L500.4050 #### [facility] [address] [place], [address] Basophils/100 WBC (Bld) 0.9 % Normal 0-1 [facility] Comment on above: Performed By: #### L 500.4100, L100.0100, L501.9520, L500.4050 #### [facility] [address] [place], [address] Eosinophils/100 WBC (Bld) 3.6 % Normal 0-5 [facility] Comment on above: Performed By: #### L 500.4100, L100.0100, L501.9520, L500.4050 #### [facility] [address] [place], [address] Erythrocyte distribution width (RBC) [Ratio] 13.1 % Normal 11.6-14.6 [facility] Comment on above: Performed By: #### L 500.4100, L100.0100, L501.9520, L500.4050 #### [facility] [address] [place], [address] Hematocrit (Bld) [Volume fraction] 42.8 % Normal 37-47 [facility] Comment on above: Performed By: #### L 500.4100, L100.0100, L501.9520, L500.4050 #### [facility] [address] [place], [address] Hemoglobin (Bld) [Mass/Vol] 14.5 g/dL Normal 12.0-15.0 [facility] Comment on above: Performed By: #### L 500.4100, L100.0100, L501.9520, L500.4050 #### [facility] [address] [place], [address] IG% 0.200 Normal 0.0-0.9 [facility] Comment on above: Result Comment: IG% - Immature Granulocytes (promyelocytes, myelocytes and metamyelocytes) > 1% indicates that a LEFT SHIFT is Present. Performed By: #### L 500.4100, L100.0100, L501.9520, L500.4050 #### [facility] [address] [place], [address] Lymphocytes/100 WBC (Bld) 37.9 % Normal 19-41 [facility] Comment on above: Performed By: #### L 500.4100, L100.0100, L501.9520, L500.4050 #### [facility] [address] [place], [address] MCH (RBC) [Entitic mass] 30.5 pg Normal 27.0-32.0 [facility] Comment on above: Performed By: #### L 500.4100, L100.0100, L501.9520, L500.4050 #### [facility] [address] [place], [address] MCHC (RBC) [Mass/Vol] 33.9 g/dL Normal 32-36 [facility] Comment on above: Performed By: #### L 500.4100, L100.0100, L501.9520, L500.4050 #### [facility] [address] [place], [address] MCV (RBC) [Entitic vol] 89.9 fL Normal 81-99 [facility] Comment on above: Performed By: #### L 500.4100, L100.0100, L501.9520, L500.4050 #### [facility] [address] [place], [address] Monocytes/100 WBC (Bld) 8.0 % Normal 0-10 [facility] Comment on above: Performed By: #### L 500.4100, L100.0100, L501.9520, L500.4050 #### [facility] [address] [place], [address] Neutrophils/100 WBC (Bld) 49.4 % Normal 47-70 [facility] Comment on above: Performed By: #### L 500.4100, L100.0100, L501.9520, L500.4050 #### [facility] [address] [place], [address] Nucleated RBC (Bld) [#/Vol] 0 10*3/uL Normal 0-5 [facility] Comment on above: Performed By: #### L 500.4100, L100.0100, L501.9520, L500.4050 #### [facility] [address] [place], [address] Platelet mean volume (Bld) [Entitic vol] 10.2 fL Normal 6.2-12.0 [facility] Comment on above: Performed By: #### L 500.4100, L100.0100, L501.9520, L500.4050 #### [facility] [address] [place], [address] Platelets (Bld) [#/Vol] 193 10*3/uL Normal 150-450 [facility] Comment on above: Performed By: #### L 500.4100, L100.0100, L501.9520, L500.4050 #### [facility] [address] [place], [address] RBC (Bld) [#/Vol] 4.76 10*6/uL Normal 4.2-5.4 [facility] Comment on above: Performed By: #### L 500.4100, L100.0100, L501.9520, L500.4050 #### [facility] [address] [place], [address] RDW SD 42.8 fl Normal 35.1-43.9 [facility] Comment on above: Performed By: #### L 500.4100, L100.0100, L501.9520, L500.4050 #### [facility] [address] [place], [address] WBC (Bld) [#/Vol] 4.5 10*3/uL Normal 4.4-11.0 [facility] Comment on above: Performed By: #### L 500.4100, L100.0100, L501.9520, L500.4050 #### [facility] [address] [place], [address] Calculated very low density lipoprotein (VLDL) cholesterol measurementOrdered By: Giles Rangel on 01-03-2025 VLDL Cholesterol 15 mg/dL 5-40 [facility] Carbon dioxide, total [Moles /volume] in Central venous bloodOrdered By: Giles Rangel on 01-03-2025 CO2 [Moles/Vol] 25.8 mmol/L 21.0-32.0 [facility] Chloride assayOrdered By: Jes Rangel on 01-03-2025 Chloride [Moles/Vol] 106 mmol/L 98-[address] [facility] Comprehensive Metabolic Prof ilon 01-03-2025 Albumin [Mass/Vol] 4.6 g/dL Normal 3.4-4.8 [facility] Comment on above: Performed By: #### L 500.4100, L100.0100, L501.9520, L500.4050 #### [facility] [address] [place], [address] Albumin/Globulin [Mass ratio] 2.1 {ratio} Normal 0.9-2.4 [facility] Comment on above: Performed By: #### L 500.4100, L100.0100, L501.9520, L500.4050 #### [facility] [address] [place], [address] ALK PHOS 64 U/L Normal 35-104 [facility] Comment on above: Performed By: #### L 500.4100, L100.0100, L501.9520, L500.4050 #### [facility] [address] [place], [address] ALT [Catalytic activity/Vol] 18 U/L Normal <=34 [facility] Comment on above: Performed By: #### L 500.4100, L100.0100, L501.9520, L500.4050 #### [facility] [address] [place], [address] AST [Catalytic activity/Vol] 21 U/L Normal <=31 [facility] Comment on above: Performed By: #### L 500.4100, L100.0100, L501.9520, L500.4050 #### [facility] [address] [place], [address] Bilirubin [Mass/Vol] 2.06 mg/dL High 0.00-1.[address] [facility] Comment on above: Performed By: #### L 500.4100, L100.0100, L501.9520, L500.4050 #### [facility] [address] [place], [address] BUN/CRE 13.9 RATIO Normal 10-20 [facility] Comment on above: Performed By: #### L 500.4100, L100.0100, L501.9520, L500.4050 #### [facility] [address] [place], [address] Calcium [Mass/Vol] 9.4 mg/dL Normal 7.6-11.0 [facility] Comment on above: Performed By: #### L 500.4100, L100.0100, L501.9520, L500.4050 #### [facility] [address] [place], [address] Chloride [Moles/Vol] 106 mmol/L Normal 98-[address] [facility] Comment on above: Performed By: #### L 500.4100, L100.0100, L501.9520, L500.4050 #### [facility] [address] [place], [address] CO2 [Moles/Vol] 25.8 mmol/L Normal 21.0-32.0 [facility] Comment on above: Performed By: #### L 500.4100, L100.0100, L501.9520, L500.4050 #### [facility] [address] [place], [address] Creatinine [Mass/Vol] 0.80 mg/dL Normal 0.70-1.20 [facility] Comment on above: Performed By: #### L 500.4100, L100.0100, L501.9520, L500.4050 #### [facility] [address] [place], [address] GAP 11 Normal 5-15 [facility] Comment on above: Performed By: #### L 500.4100, L100.0100, L501.9520, L500.4050 #### [facility] [address] [place], [address] GFR/1.73 sq M.predicted among non-blacks MDRD (S/P/Bld) [Vol rate/Area] 83 mL/min/{1.73_m2} Normal >60 [facility] Comment on above: Result Comment: mL/m in/1.73m2 CKD-EPI Creatinine Equation (2020) Performed By: #### L 500.4100, L100.0100, L501.9520, L500.4050 #### [facility] [address] [place], [address] Globulin (S) [Mass/Vol] 2.2 g/dL Normal 2.2-4.2 [facility] Comment on above: Performed By: #### L 500.4100, L100.0100, L501.9520, L500.4050 #### [facility] [address] [place], [address] Glucose [Mass/Vol] 83 mg/dL Normal 70-99 [facility] Comment on above: Performed By: #### L 500.4100, L100.0100, L501.9520, L500.4050 #### [facility] [address] [place], [address] Potassium [Moles/Vol] 4.3 mmol/L Normal 3.3-5.1 [facility] Comment on above: Performed By: #### L 500.4100, L100.0100, L501.9520, L500.4050 #### [facility] [address] [place], [address] Sodium [Moles/Vol] 143 mmol/L Normal 133-145 [facility] Comment on above: Performed By: #### L 500.4100, L100.0100, L501.9520, L500.4050 #### [facility] [address] [place], [address] T PROT 6.7 g/dL Normal 5.9-8.4 [facility] Comment on above: Performed By: #### L 500.4100, L100.0100, L501.9520, L500.4050 #### [facility] [address] [place], [address] Urea nitrogen [Mass/Vol] 11 mg/dL Normal 4-19 [facility] Comment on above: Performed By: #### L 500.4100, L100.0100, L501.9520, L500.4050 #### [facility] [address] [place], [address] Eosinophil percentageOrdered By: Giles Rangel on 01-03-2025 Eosinophils/100 WBC (Bld) 3.6 % 0-5 [facility] Erythrocyte distribution wid th ratioOrdered By: Giles Rangel on 01-03-2025 Erythrocyte distribution width (RBC) [Ratio] 13.1 % 11.6-14.6 [facility] Erythrocyte distribution wid th standard deviationOrdered By: Giles Rangel on 01-03-2025 Erythrocyte distribution width (RBC) [Entitic vol] 42.8 fL 35.1-43.9 [facility] GFR/1.73 sq M.predicted jaclyn g non-blacks MDRD (S/P/Bld) [Vol rate/Area]Ordered By: Giles Rangel on 01-03-2025 Estimated GFR (MDRD) Non-Af Amer 83 >60 [facility] Comment on above: mL/min/1.73m2 CKD-EP I Creatinine Equation (2020) Hematocrit Auto (Bld) [Volum e fraction]Ordered By: Giles Rangel on 01-03-2025 Hematocrit (Bld) [Volume fraction] 42.8 % 37-47 [facility] Hemoglobin measurementOrdere d By: Giles Rangel on 01-03-2025 Hemoglobin (Bld) [Mass/Vol] 14.5 g/dL 12.0-15.0 [facility] Immature granulocytes/100 WB C Auto (Bld)Ordered By: Giles Rangel on 01-03-2025 Immature granulocytes/100 WBC (Bld) 0.200 % 0.0-0.9 [facility] Comment on above: IG% - Immature Granu locytes (promyelocytes, myelocytes and metamyelocytes) > 1% indicates that a LEFT SHIFT is Present. LDL calc ser/plasOrdered By: Giles Rangel on 01-03-2025 LDL Cholesterol, Calculated 63 mg/dL [facility] Comment on above: Lknutgjtnv=994-888 m g/dL & Higher Maug=749 mg/dL or greater Laboratory - Chemistry and C hemistry - challengeOrdered By: Giles Rangel on 01-03-2025 AST [Catalytic activity/Vol] 21 U/L <32 [facility] Lipid Profileon 01-03-2025 CHOL:HDL 2.19 Normal [facility] Comment on above: Performed By: #### L 500.4100, L100.0100, L501.9520, L500.4050 #### [facility] [address] [place], [address] Cholesterol [Mass/Vol] 144 mg/dL Normal <=200 [facility] Comment on above: Result Comment: Chol esterol level, Desirable <200 mg/dL Borderline high cholesterol 200-239 mg/dL High cholesterol >=240 mg/dL Recommendations of the NCEP Adult Treatment Panel for the following risk-cutoff thresholds for the [place] population. Performed By: #### L 500.4100, L100.0100, L501.9520, L500.4050 #### [facility] [address] [place], [address] Cholesterol in HDL [Mass/Vol] 66 mg/dL Normal [facility] Comment on above: Result Comment: Alexa onal Cholesterol Education Program (NCEP) guidelines: <40 mg/dL: Low HDL-cholesterol (major risk factor for CHD) >= 60 mg/dL: High HDL-cholesterol (negative risk factor for CHD) HDL-cholesterol is affected by a number of factors, e.g. smoking, exercise, hormones, sex and age. Performed By: #### L 500.4100, L100.0100, L501.9520, L500.4050 #### [facility] [address] [place], [address] Cholesterol in LDL [Mass/Vol] 63 mg/dL Normal [facility] Comment on above: Result Comment: Bord awjrqa=412-918 mg/dL Higher Nqcg=286 mg/dL or greater Performed By: #### L 500.4100, L100.0100, L501.9520, L500.4050 #### [facility] [address] [place], [address] Cholesterol in VLDL [Mass/Vol] 15 mg/dL Normal 5-40 [facility] Comment on above: Performed By: #### L 500.4100, L100.0100, L501.9520, L500.4050 #### [facility] [address] [place], [address] Triglyceride [Mass/Vol] 77 mg/dL Normal [facility] Comment on above: Result Comment: The drugs N-Acetylcysteine and Metamizole may falsely depress this assay. Normal range: <150 mg/dL Borderline High: 150-199 mg/dL High: 200-499 mg/dL Very High: >500 mg/dL Performed By: #### L 500.4100, L100.0100, L501.9520, L500.4050 #### [facility] [address] [place], [address] Lymphocytes Auto (Unsp spec) [#/Vol]Ordered By: Giles Rangel on 01-03-2025 Lymphocytes (Bld) [#/Vol] 1.70 10*3/uL 0.83-4.5 1 [facility] Lymphocytes/100 WBC Auto (Un sp spec)Ordered By: Giles Rangel on 01-03-2025 Lymphocytes/100 WBC (Bld) 37.9 % 19-41 [facility] MCV (mean corpuscular volume ) determinationOrdered By: Giles Rangel on 01-03-2025 MCV (RBC) [Entitic vol] 89.9 fL 81-99 [facility] Mean corpuscular hemoglobin (MCH) determinationOrdered By: Giles Rangel on 01-03-2025 MCH (RBC) [Entitic mass] 30.5 pg 27.0-32.0 [facility] Mean corpuscular hemoglobin concentration (MCHC) determinationOrdered By: Giles Rangel on 01-03-2025 MCHC (RBC) [Mass/Vol] 33.9 g/dL 32-36 [facility] Mean platelet volume determi nationOrdered By: Giles Rangel on 01-03-2025 Platelet mean volume (Bld) [Entitic vol] 10.2 fL 6.2-12.0 [facility] Monocyte percentageOrdered B y: Gilse Rangel on 01-03-2025 Monocytes/100 WBC (Bld) 8.0 % 0-10 [facility] Neutrophil percentageOrdered By: Giles Rangel on 01-03-2025 Neutrophils/100 WBC (Bld) 49.4 % 47-70 [facility] Nucleated red blood cell per centageOrdered By: Giles Rangel on 01-03-2025 Nucleated RBC/100 WBC (Bld) [Ratio] 0 % 0-5 [facility] Platelet countOrdered By: Jes Rangel on 01-03-2025 Platelets (Bld) [#/Vol] 193 10*3/uL 150-450 [facility] Potassium (Unsp spec) [Mass/ Vol]Ordered By: Giles Rangel on 01-03-2025 Potassium [Moles/Vol] 4.3 mmol/L 3.3-5.1 [facility] RBC Auto (Bld) [#/Vol]Ordere d By: Giles Rangel on 01-03-2025 RBC (Bld) [#/Vol] 4.76 10*6/uL 4.2-5.4 [facility] Screening total cholesterol/ high density lipoprotein (HDL) cholesterol ratioOrdered By: Giles Rangel on 01-03-2025 Cholesterol.total/Cholest jodi in HDL [Mass ratio] 2.19 {ratio} [facility] Serum creatinine measurement (mass/volume)Ordered By: Giles Rangel on 01-03-2025 Creatinine [Mass/Vol] 0.80 mg/dL 0.70-1.20 [facility] Serum globulin measurementOr dered By: Giles Rangel on 01-03-2025 Globulin (S) [Mass/Vol] 2.2 g/dL 2.2-4.2 [facility] Serum glucose measurement (m ass/volume)Ordered By: Giles Rangel on 01-03-2025 Glucose [Mass/Vol] 83 mg/dL 70-99 [facility] Serum or plasma alanine laurent otransferase (ALT) measurementOrdered By: Giles Rangel on 01-03-2025 ALT [Catalytic activity/Vol] 18 U/L <35 [facility] Serum or plasma albumin nate urement (mass/volume)Ordered By: Giles Rangel on 01-03-2025 Albumin [Mass/Vol] 4.6 g/dL 3.4-4.8 [facility] Serum or plasma albumin/glob ulin mass ratioOrdered By: Giles Rangel on 01-03-2025 Albumin/Globulin [Mass ratio] 2.1 {ratio} 0.9-2.4 [facility] Serum or plasma alkaline jeff sphatase measurementOrdered By: Giles Rangel on 01-03-2025 ALP [Catalytic activity/Vol] 64 U/L 35-104 [facility] Serum or plasma calcium nate urement (mass/volume)Ordered By: Giles Rangel on 01-03-2025 Calcium [Mass/Vol] 9.4 mg/dL 7.6-11.0 [facility] Serum or plasma cholesterol in HDL measurement (mass/volume)Ordered By: Giles Rangel on 01-03-2025 Cholesterol in HDL [Mass/Vol] 66 mg/dL >40 [facility] Comment on above: National Cholesterol Education Program (NCEP) guidelines:<40 mg/dL: Low HDL-cholesterol (major risk factor for CHD)>= 60 mg/dL: High HDL-cholesterol (negative risk factor for CHD)HDL-cholesterol is affected by a number of factors, e.g. smoking, exercise, hormones, sex and age. Serum or plasma cholesterol measurement (mass/volume)Ordered By: Giles Rangel on 01-03-2025 Cholesterol [Mass/Vol] 144 mg/dL <201 [facility] Comment on above: Cholesterol level, D esirable <200 mg/dLBorderline high cholesterol 200-239 mg/dLHigh cholesterol >=240 mg/dLRecommendations of the NCEP Adult Treatment Panel for the following risk-cutoff thresholds for the [place] population. Serum or plasma urea nitroge n measurement (mass/volume)Ordered By: Giles Rangel on 01-03-2025 Urea nitrogen [Mass/Vol] 11 mg/dL 4-19 [facility] Sodium levelOrdered By: Giles Rangel on 01-03-2025 Sodium [Moles/Vol] 143 mmol/L 133-145 [facility] TSH DL <= 0.005 mIU/L QnOrde red By: Giles Rangel on 01-03-2025 Thyroid Stimulating Hormone (TSH) 2.600 uIU/mL 0.300-4.200 [facility] Thyroid Stim Hormone (TSH)on 01-03-2025 TSH 2.600 uIU/mL Normal 0.300-4.200 [facility] Comment on above: Performed By: #### L 500.4100, L100.0100, L501.9520, L500.4050 #### [facility] [address] [place], [address] Total proteinOrdered By: Cari Rangel on 01-03-2025 Protein [Mass/Vol] 6.7 g/dL 5.9-8.4 [facility] Triglycerides measurementOrd ered By: Giles Rangel on 01-03-2025 Triglyceride [Mass/Vol] 77 mg/dL <199 [facility] Comment on above: The drugs N-Acetylcy steine and Metamizole may falsely depress this assay. Normal range: <150 mg/dLBorderline High: 150-199 mg/dLHigh: 200-499 mg/dLVery High: >500 mg/dL White blood cell (WBC) count Ordered By: Giles Rangel on 01-03-2025 WBC (Bld) [#/Vol] 4.5 10*3/uL 4.4-11.0 [facility] Vital Signs Date Time Vital Sign Value Performing Clinician Faci lity 05-21-2025 07:55-0400 Body height 163.[address] Giles Rangel DO Work Phone: [facility] 05-21-2025 07:55-0400 Body mass index (BMI) [Ratio] 25.6 kg/m2 Dr. Giles Rangel DO Work Phone: [facility] 05-21-2025 07:55-0400 Body temperature 98 [degF] Dr. Giles Rangel DO Work Phone: [facility] 05-21-2025 07:55-0400 Body weight 68.[address] Giles Rangel DO Work Phone: [facility] 05-21-2025 07:55-0400 Diastolic blood pressure 78 mm[Hg] Dr. Giles Rangel DO Work Phone: [facility] 05-21-2025 07:55-0400 Heart rate 90 /min Dr. Giles Rangel DO Work Phone: [facility] 05-21-2025 07:55-0400 Respiratory rate 18 /min Dr. Giles Rangel DO Work Phone: [facility] 05-21-2025 07:55-0400 SaO2% (BldA) [Mass fraction] 97 % Dr. Giles Rangel DO Work Phone: [facility] 05-21-2025 07:55-0400 Systolic blood pressure 122 mm[Hg] Dr. Giles Rangel DO Work Phone: [facility] Encounters Encounter Date Encounter Type Care Provider Facility Start: 05-21-2025 End: 05-21-[address] Giles Rangel DO Work Phone: [facility] Start: 05-21-2025 End: 05-21-2025 Patient encounter procedure Jose Rubalcava PA [facility] Work Phone: Start: 01-14-2025 Encounter for genera l adult medical examination without abnormal findings Giles Rangel [facility] Start: 01-03-2025 End: 01-03-[address] Giles Rangel DO Work Phone: [facility] Work Phone: Start: 01-03-2025 End: 01-03-[address] Giles Rangel DO -Laboratory Work Phone: Start: 01-03-2025 End: 01-03-2025 ambulatory Giles Rangel Facility:[facility] Plan of Treatment Date Care Activity Detail Author Start: 05-21-2025 Bacteria identified in Urine by Culture Urine Culture [facility] Start: 05-21-2025 [facility] Urine culture [facility] Payers Date Payer Category Payer Self-pay 2025 Unknown [id number] 2015 Unknown [id number] Private Health Insurance [id number] Unknown [id number] Unknown [id number] Social History Date Type Detail Facility Start: 11-24-2018 End: 05-21-2025 Tobacco smoking status NHIS Never smoked tobacco (finding) [facility] Start: 01-14-2025 Sex Female (finding) [facility] Start: 1960 Sex Assigned At Female [facility] Medical Equipment Procedure Code Equipment Code Equipment Origin al Text Equipment Identifier Dates Minimally invasive total replacement of hip joint by anterior approach 127 DEGREE NECK ANGLE HIP STEM FDA Start: 11-23-2018 Minimally invasive total replacement of hip joint by anterior approach 6.5MM LOW PROFILE HEX SCREW FDA Start: 11-23-2018 Minimally invasive total replacement of hip joint by anterior approach FEMORAL HEAD FDA Start: 11-23-2018 Minimally invasive total replacement of hip joint by anterior approach TRIDENT ACETABULAR SHELL FDA Start: 11-23-2018 Minimally invasive total replacement of hip joint by anterior approach TRIDENT POLYETHYLENE INSERT FDA Start: 11-23-2018 Minimally invasive total replacement of hip joint by anterior approach 127 DEGREE NECK ANGLE HIP STEM FDA Start: 11-23-2018 Minimally invasive total replacement of hip joint by anterior approach 6.5MM LOW PROFILE HEX SCREW FDA Start: 11-23-2018 Minimally invasive total replacement of hip joint by anterior approach FEMORAL HEAD FDA Start: 11-23-2018 Minimally invasive total replacement of hip joint by anterior approach TRIDENT ACETABULAR SHELL FDA Start: 11-23-2018 Minimally invasive total replacement of hip joint by anterior approach TRIDENT POLYETHYLENE INSERT FDA Start: 11-23-2018 Evaluation note Note Date & Type Note Facility Evaluation note No assessment information availa ble [facility] Work Phone: Reason for referral (narrative) Note Date & Type Note Facility Reason for referral (narrative) No reason for referral information available [facility] Work Phone: Summary Purpose Family History No Family History Records Found Advance Directives No Advanced Directives Records Found Chief Complaint and Reason for Visit Chief Complaint Admit Date UTI CONCERNS May 21, 2025 7:48 am Additional Source Comments INFORMATION SOURCE (unrecogn ized section and content) DATE CREATED AUTHOR 01/16/2025 [facility] Care Teams (unrecognized sec tion and content) Team Status: Active Member Role Status Dates Dr. Giles Rangel DO Family Provider Active Dr. Giles Rangel DO Primary Care Provider Active Team Status: Inactive Member Role Status Dates Dr. Giles Rangel DO Primary Care Provider Active Start: January 03, 2025 End: January 03, 2025 Dr. Giles Rangel DO Attending Provider Active Start: January 03, 2025 End: January 03, 2025 Dr. Giles Rangel DO Referring Provider Active Start: January 03, 2025 End: January 03, 2025 Team Status: Active Member Role/Relationship Status Dates Dr. Giles Rangel DO Family Provider Active Dr. Giles Rangel DO Primary Care Provider Active Team Status: Inactive Member Role/Relationship Status Dates Dr. Giles Rangel DO Primary Care Provider Active Start: May 21, 2025 End: May 21, 2025 Dr. Giles Rangel DO Referring Provider Active Start: May 21, 2025 End: May 21, 2025 Jose Rubalcava PA, PA Attending Provider Active Start: May 21, 2025 End: May 21, 2025 Team Status: Active Member Role/Relationship Status Dates Dr. Giles Juan Carlos , DO Primary Care Provider Active Start: May 21, 2025 Jose SHANNON, PA Attending Provider Active Start: May 21, 2025 Goals (unrecognized section and content) Goals may be documented in a n alternate sectionGoals may be documented in an alternate section FOR RECORDS PERTAINING TO PATIENTS WHO ARE OR HAVE BEEN ENROLLED IN A CHEMICAL DEPENDENCY/SUBSTANCEABUSE PROGRAM, SOME INFORMATION MAY BE OMITTED. This clinical summary was aggregated from multiple sources. Caution should be exercised in using it in the provision of clinical care. This summary normalizes information from multiple sources, and as a consequence, information in this document may materially change the coding, format and clinical context of patient data. In addition, data may be omitted in some cases. CLINICAL DECISIONS SHOULD BE BASED ON THE PRIMARY CLINICAL RECORDS. [employer] provides no warranty or guarantee of the accuracy or completeness of information in this document.
== END | disposition home or self-care (01) ==
LOC: LABSPEC 08:04
PROVIDERS: PCP Family Medicine; Visit Provider Physician Assistant
DX: R30.0 Dysuria (principal)
CPT/HCPCS: 87086; 87088; 87186